=== PATIENT | female | born 1970 | race Caucasian/White ===

== ENCOUNTER 2019-10-05 16:37 | Outpatient (CLI) | payer OTHER, SELFPAY ==
--- NOTE | ~2019-10-05 | XR_ITS ---
EXAMINATION: XR abdomen/kub 1V EXAM DATE: 10/05/2019 17:21 INDICATION: Right renal colic. TECHNIQUE: Frontal projection(s) of the abdomen for interpretation. Comparison is made to prior exami nation from 01/01/2013. FINDINGS: There is expected amount of colonic stool and gas. No small bowel dilation, nonobstructiv e bowel gas pattern. Several punctate pelvic calcifications which are unchanged compared to prior st udy, phleboliths. Previously seen left nephrolithiasis no longer identified. There is no organomega ly suspected. The bones are unremarkable. Lung bases are clear. IMPRESSION: Unremarkable abdomen x-ray exam. Reviewed, dictated and finalized at location A.
--- NOTE | ~2019-10-05 | CT_ITS ---
EXAMINATION: CT abdomen pelvis wo con EXAM DATE: 10/05/2019 17:29 INDICATION: Right-sided renal colic. TECHNIQUE: Spiral CT of the abdomen and pelvis was performed without contrast. Axial, coronal and sag ittal images were reviewed. The dose-length product (DLP) for this examination was 235.95 mGy-cm. T he exposure was tailored according to patient size (auto mA exposure control), and iterative reconstr uction (ASIR) was used as additional dose reduction technique. There is no prior study for compariso n. FINDINGS: There is a right ureteral stone measuring up to 4 mm in size in the distal aspect of the ri ght ureter, 5 cm from the ureterovesicular junction. No hydronephrosis at present. This is KUB positi ve, indicated on that examination. There are 3 and 2 mm right calyceal stones. No left nephrolithiasi s. Uterus is anteverted The bladder is unremarkable. The liver, spleen, adrenal glands and pancreas are unremarkable. Gallbladder is unremarkable. No biliary obstruction. There is no retroperitonea l or pelvic lymphadenopathy. The appendix is normal. The stomach and small bowel are unremarkable. There is expected amount of c olonic stool. No free intraperitoneal gas. The heart is normal in size. There are no pericardial or pleural effusions. The lung bases are unremarkable. The bones are unremarkable. IMPRESSION: Right distal ureteral 4 mm stone without hydronephrosis. 2 small right calyceal stones. Reviewed, dictated and finalized at location A. IMPRESSION: Right distal ureteral 4 mm stone without hydronephrosis. 2 small ri ght calyceal stones.
== END 2019-10-05 16:38 | disposition home or self-care (01) ==
LOC: ANHIMG 16:48
PROVIDERS: PCP Physician Assistant Medical; Visit Provider Urology
DX: N23 Unspecified renal colic (principal); N20.1 Calculus of ureter
CPT/HCPCS: 74018; 74176

== ENCOUNTER 2019-10-06 12:05 | Day surgery (SDC) | payer OTHER, SELFPAY ==
[2019-10-06] VITALS (8 sets, daily range): BP systolic 128–160; BP diastolic 65–87; PULSE 60–65; RESP 12–18; TEMP 36.2; O2SAT 96–100; BMI 31.2
--- NOTE | ~2019-10-06 | XR_ITS ---
EXAMINATION: XR retrograde pyelo w/stent RT DATE: 10/06/2019 12:56 INDICATION: Left internal ureteral stent placement TECHNIQUE: Fluoroscopic images from a left internal ureteral stent placement are submitted for review . 17 seconds of fluoroscopy time. 9 fluoroscopic images FINDINGS: There is a left double-J internal ureteral stent projecting in expected position, with proximal Mcalester loop at the level of the renal pelvis and distal loop in the pelvis within the bladder lumen. IMPRESSION: 1. Left internal ureteral stent placement. Please refer to real-time procedural findings for detail s. Reviewed, dictated and finalized at location A. IMPRESSION: 1. Left internal ureteral stent placement. Please refer to real-time procedur al findings for details.
--- NOTE | 2019-10-06 11:10 | ECG_ITS ---
Measurements Intervals [place] Rate: 60 P: 25 MA: 159 QRS: 27 QRSD: 98 T: 32 QT: 420 QTc: 421 Interpretive Statements SINUS RHYTHM NORMAL ECG Electronically Signed On 10-06-2019 11:37:55 CDT by Rubio Nur D.O.
--- NOTE | 2019-10-06 11:24 | P.PNAN_ITS ---
Anes - Initial Pre Proc Eval Procedure: Operation Date: 10/06/19 12:00 Proposed Procedures p Cystoscopy, Right Ureteroscopy, Right Retrograde Pyelogram, Right Stone Extraction, Possible Right Stent Placement - Shmuel Del Rio MD s Possible Holmium Laser Procedure - Shmuel Del Rio MD Date/Time: 10/06/19 11:24 Surgeon: Shmuel Del Rio MD Pre Op Diagnosis: Right Ureteral Stone Patient Data Age: 49 Gender: F Height: 5 ft Weight: 72.57 kg Allergies Allergy/AdvReac Type Severity Reaction Status Date / Time morphine AdvReac Itching Verified 10/06/19 10:15 Home Medications Medication Instructions Recorded Confirmed Type atorvastatin 10 mg PO HS 10/06/19 10/06/19 History hydrochlorothiazide 12.5 mg PO BID 10/06/19 10/06/19 History losartan 100 mg PO DAILY 10/06/19 10/06/19 History pioglitazone 15 mg PO DAILY 10/06/19 10/06/19 History semaglutide [Ozempic] 0.5 mg SUBCUT WEEKLY 10/06/19 10/06/19 History venlafaxine 75 mg PO DAILY 10/06/19 10/06/19 History Patient hx anesthesia problems: post op nausea/vomiting Family hx anesthesia problems: none PMFSH Past Medical History Medical History Diabetes Hyperlipidemia Hypertension Family History Family History Mother Hypertension Sibling Patient's sister is in good health Patient's brother is in good health Hypertension Father Family history of malignant neoplasm of bone, Onset Age: 52 Patient's father is Family history of lung cancer Other Depression Diabetes mellitus Family history of attention deficit hyperactivity disorder (ADHD) Family history of malignant neoplasm Family history of malignant neoplasm of male breast Social History Social History Smoking status: Never smoker Second hand tobacco smoke exposure: No Alcohol intake: never Anes - Eval Final PreProcedure Day of Procedure 10/06/19 11:24 Patient weight: obese Heart: regular rate and rhythm Lungs: clear to auscultation Airway: Mallampati scale class 1 Neurological: alert and oriented Last oral intake: >/= 8 hours ASA classification: III Emergent: no Anesthetic plan: proceed Anesthesia type and monitoring: general LMA and standard monitoring Informed Consent: The patient's anesthetic plan and its attendant risks and benefits were discussed with the patient/family/POA. Questions were solicited a nd answers provided to the satisfaction of the patient/family/POA.
[2019-10-06] MEDS: SCOPOLAMINE 1.5 MG PATCH TRANSDERM (11:30)
[2019-10-06] MEDS: LACTATED RINGERS 1,000 ML 30 ML IV CONT ×2 (11:30→13:13)
[2019-10-06 12:00] LABS: Glucose Point of Care 107 (65-105)
[2019-10-06 12:13] LABS: Blood Urea Nitrogen 20 mg/dL (7-17); Carbon Dioxide 35 mmol/L (22-30); Chloride 99 mmol/L (98-107); Estimated CRCL calculation 75 ml/min; Estimated Glomerular Filt Rate > 60; Glucose 129 mg/dL (65-105); Sodium 140 mmol/L (137-145)
--- NOTE | 2019-10-06 12:17 | WPDHPUPDATE1 ---
History and Physical Update Update Date/Time: 10/06/19 12:17 History and Physical has been reviewed, including an updated exam of the patient. There are NO changes in the patient's condition. Risks, benefits, and alternatives have been discussed and questions answered. Patient agrees to proceed with procedure.
[2019-10-06] MEDS: ceFAZolin 2 GM/D5W 50 ML 2 GM/50 ML BAG IVPB (12:21)
[2019-10-06] MEDS: KETOROLAC 30 MG/ML VIAL (*BKC) IM (12:53)
--- NOTE | 2019-10-06 12:56 | PM.PROC ---
Procedure Note - Detailed Date of procedure: 10/06/19 Pre-op diagnosis: Right Ureteral Stone Post-op diagnosis: same Procedure performed: Cystoscopy, right retrograde pyelogram, right ureteroscopy with stone extraction, right ureteral stent placement 4.8 contour Description of procedure: Patient was taken to the operative suite and correctly identified. Once general anesthesia was obtained she was placed in the dorsal lithotomy position and prepped and draped in usual sterile fashion. Twenty-two Croatian scope was inserted into the bladder. There were no tumors noted. Right ureteral orifice was cannulated with a guidewire. It was then dilated with an 8/10 dilator. Rigid ureteral scope was inserted the stone was visualized. Using an escape basket the stone was retrieved in its entirety and sent for analysis. Pyelogram was then performed to confirm placement of the stent. A 4.8 contour stent was then placed with the proximal end coiled in the renal pelvis and the distal end in the bladder. Bladder was drained. 2% viscous lidocaine was inserted into the urethra and patient is taken recovery room stable condition. She will be discharged home with pain meds and antibiotics. She will follow up in a week's time for stent removal. Anesthesia: GLMA Surgeon: Shmuel Del Rio MD Drains: Yes Packing: No Pathology: yes Complications: No immediate complications Condition: stable Disposition: PACU
--- NOTE | 2019-10-06 14:50 | SUR.OPER ---
ebl:0cc
[2019-10-06 14:56] LABS: Glucose Point of Care 152 (65-105)
== END 2019-10-06 15:45 | disposition home or self-care (01) ==
PROVIDERS: Anesthesiology; PCP Physician Assistant Medical; Visit Provider Urology
PROC: (CPT 52352; principal; 2019-10-06 12:00)
DX: N20.1 Calculus of ureter (principal); I10 Essential (primary) hypertension; E11.9 Type 2 diabetes mellitus without complications; E78.5 Hyperlipidemia, unspecified; E66.9 Obesity, unspecified; Z68.31 Body mass index [BMI] 31.0-31.9, adult
CPT/HCPCS: 52332; 52352; 36415; 74420; 80048; 82365; 88300; 93005; A9270; C1769; C2617; J0690; J1885; J2250; J2704; J3010; J7120; Q9966

== ENCOUNTER 2019-11-16 13:42 | Outpatient (CLI) | payer OTHER, SELFPAY ==
--- NOTE | ~2019-11-16 | XR_ITS ---
EXAMINATION: XR abdomen/kub 1V EXAM DATE: 11/16/2019 14:11 INDICATION: Kidney stone. TECHNIQUE: Frontal projection of the upper abdomen, frontal projection lower abdomen/pelvis for inter pretation. Comparison is made to prior examination from 10/05/2019. FINDINGS: Previously suspected linear 4 mm density in the right side of the pelvis is no longer iden tified, this stone may have passed. Calcifications in the pelvis are believed to be phleboliths. Mo derate amount of colonic stool. Nonobstructive bowel gas pattern. There are no osseous abnormalities identified. IMPRESSION: Unremarkable KUB exam. Reviewed, dictated and finalized at location A. IMPRESSION: Unremarkable KUB exam.
== END 2019-11-16 13:43 | disposition home or self-care (01) ==
PROVIDERS: PCP Physician Assistant Medical; Visit Provider Urology
DX: N20.0 Calculus of kidney (principal)
CPT/HCPCS: 74018